=== PATIENT | female | born 1940 | race Caucasian/White ===

== ENCOUNTER 2019-03-05 17:31 | Emergency (ER) | payer SELFPAY ==
[~2019-03-05] VITALS: Ht 160 cm; Wt 68.3 kg
[~2019-03-05 17:31] MED LIST: IRBE150T21 PO; MECL12.574 PO
[2019-03-05 17:37] VITALS: Ht 160 cm; Wt 68.3 kg
[2019-03-05] MEDS ORDERED: MECLIZINE 12.5 MG TAB PO ONE (21:30)
[2019-03-05] MEDS ORDERED: IOHEXOL 300MG/ML 150 ML BTL ONE (23:03)
[2019-03-05] MEDS ORDERED: SOD CHLORIDE 0.9% 100 ML ONE (23:03)
[2019-03-06 01:40] VITALS: BP 92/68; PULSE 66; RESP 19
== END 2019-03-06 01:41 | disposition home or self-care (01) ==
LOC: E/R 17:31
DX: H81.10 Benign paroxysmal vertigo, unspecified ear (principal)
CPT/HCPCS: 36415; 70450; 70496; 70498; 80048; 82962; 84484; 85025; 93005; 99285; Q9967